=== PATIENT | male | born 1980 | race African-American/Black ===

== ENCOUNTER 2016-11-09 10:31 | Emergency (ER) | payer MEDICAID ==
[~2016-11-09] VITALS: Ht 185.4 cm; Wt 74.8 kg
[2016-11-09 10:39] VITALS: BP 117/87
== END 2016-11-09 11:10 | disposition home or self-care (01) ==
LOC: ER 10:31
DX: F90.9 Attention-deficit hyperactivity disorder, unspecified type (principal); Z76.0 Encounter for issue of repeat prescription

== ENCOUNTER 2016-12-01 09:17 | Emergency (ER) | payer MEDICAID ==
[~2016-12-01] VITALS: Ht 182.9 cm; Wt 74.4 kg
[2016-12-01 09:39] VITALS: BP 110/79
== END 2016-12-01 09:47 | disposition home or self-care (01) ==
LOC: ER 09:17
DX: F90.9 Attention-deficit hyperactivity disorder, unspecified type (principal)